=== PATIENT | male | born 1955 | race Caucasian/White ===

== ENCOUNTER → 2017-06-18 | Outpatient (CLI) | payer OTHER ==
[~2017-06-18] VITALS: Ht 172.7 cm; Wt 93.0 kg
[~2017-06-18] MED LIST: ALEVE220 MG; COUMADIN 5 MG TA5 M1; FISH OIL 1,001000 M2 PO; FISHOIL; HYDROCODON-ACE1 EAC8; LEVAQUIN 500 M500 M3 PO; LISINOPRIL10 MG PO; LORTAB 7.5/5001 TA3 PO; MULTIVITAMINS; MULTIVITAMINS1 EAC7 PO; PERCOCET 5-3251 EACH PO; PHENERGAN 25 MG25 M1 PO; ZANTAC; ZANTAC 150MG T150 M1 PO; ZANTAC 150MG T150 MG PO; flomax PO
--- NOTE | ~2017-06-18 | S ---
[facility] [place] [address] SURGICAL PATH RPT PROCEDURE Name: CHIQUISIRVING JOSE Room #: REG CAMILO BradyMichaelRaduMichael#: [id number] Admission: 06/18/17 Date of : 53 Discharge: Report #: [id number] Path Case #: [id number] PATHOLOGY REPORT COLLECTION DATE: 06/18/2017 RECEIVED DATE: 06/18/2017 SUBMITTING PHYS: Dr. Faustino Juarez OTHER PHYS: Dr. Karl Jones SPECIMEN(S) RECEIVED: A.Esophagus B.Gastric C.Polypechtomy at 70cm D.Cecal polyp E.Polyp ascending colon F.Polypectomy at hepatic flexure * * * * * * * * * * * * FINAL DIAGNOSIS: A. Esophagus, biopsy: - Squamocolumnar junctional mucosa with minimal/focal intestinal metaplasia (García's esophagus), negative for dysplasia. B. Stomach, biopsy: - Mild chronic inactive gastritis. - An H. pylori immunostain is negative (Block B1; appropriately reactive control). C. Colon, 70 cm, polypectomy: - Tubular adenoma, fragmented. - Negative for high-grade dysplasia. D. Colon, cecum, biopsy: - Tubular adenoma. - Negative for high-grade dysplasia. E. Colon, ascending, biopsy: - Tubular adenoma. - Negative for high-grade dysplasia. F. Colon, hepatic flexure, polypectomy: - Tubular adenoma. - Negative for high-grade dysplasia. PATHOLOGIST: Alvin. Prochaska, M.D. REPORT ELECTRONICALLY SIGNED BY: Moises Stinson M.D. DATE/TIME: 06/21/2017 11:05 * * * * * * * * * * * * GROSS PATHOLOGY: A. Received in formalin labeled "PAT Holden of esophagus [facility] [address] [place] [address] SURGICAL PATH RPT PROCEDURE Name: IRVING SIM JOSE Room #: REG CAMILO Michael#: [id number] Admission: 06/18/17 Date of : 53 Discharge: Report #: [id number] Path Case #: [id number] r/o García's," are 3 segments of alberto soft tissue measuring 1.0 x 0.2 x 0.3 cm in aggregate dimensions and ranging from 0.1 to 0.4 cm in maximum dimension. The specimen is submitted entirely in cassette A1. B. Received in formalin labeled "PAT Holden of gastric r/o gastritis," are 5 segments of alberto soft tissue measuring 1.5 x 0.2 x 0.3 cm in aggregate dimensions and ranging from 0.2 to 0.3 cm in maximum dimension. The specimen is submitted entirely in cassette B1. C. Received in formalin labeled "Irving Sim, polyp at 70 cm," are 5 segments of alberto soft tissue measuring 1.5 x 2.1 x 0.5 cm in aggregate dimensions and ranging from 0.4 to 0.6 cm in maximum dimension. The specimen is submitted entirely in cassette C1. D. Received in formalin labeled "Irving Sim, BX of cecal polyp," is a segment of alberto soft tissue measuring 0.3 cm in maximum dimension. The specimen is submitted entirely in cassette D1. E. Received in formalin labeled "Irving Sim, polyp at ascending colon," are 2 segments of alberto soft tissue measuring 0.9 x 0.3 x 0.2 cm in aggregate dimensions and ranging from 0.3 to 0.5 cm in maximum dimension. The specimen is submitted entirely in cassette E1. F. Received in formalin labeled "Irving Sim, polypectomy at hepatic flexure," are 2 segments of alberto soft tissue measuring 0.9 x 0.5 x 0.3 cm in aggregate dimensions and ranging from 0.4 to 0.5 cm in maximum dimension. The specimen is submitted entirely in cassette F1. (TSD; 06/18/2017) CLINICAL HISTORY: Pre-OP DX: GERD Post-OP DX: Gastritis, diverticulosis, colon polyps, hemorrhoids INITIAL CPT CODE(S): A; 63471 B; 38248, 67991 C; 76537 D; 63068 E; 95154 F; 97745 Professional services performed by [facility] [address], [place] [address] Technical services performed by [facility] at [address] [place] [address], [address] [address]. [facility] [address] [address] SURGICAL PATH RPT PROCEDURE Name: IRVING SIM JOSE Room #: REG CAMILO Rodriguez#: [id number] Admission: 06/18/17 Date of : 53 Discharge: Report #: [id number] Path Case #: [id number] [address] PHONE: [phone] DIRECTOR: Daniel Bloom M.D. * * * END OF REPORT * * *
--- NOTE | ~2017-06-18 | P ---
[facility] [place] [address] PROCEDURE REPORT Name: IAN SIM JOSE Room #: REG RAJESHMadelyn Rodriguez#: [id number] Admission: 06/18/17 Attend Phys: Faustino Juarez MD Discharge: Date of : 53 Report #: [id number] THIS REPORT FOR: //name// CC: Karl Quintana MD BRIEF HISTORY: The patient is a 62-year-old male for his initial screening colonoscopy. He is asymptomatic. PREOPERATIVE DIAGNOSIS: First screening colonoscopy. POSTOPERATIVE DIAGNOSES: 1. Multiple colon polyps. 2. Moderate sigmoid diverticulosis coli. 3. Small internal hemorrhoids. MEDICATIONS: Deep sedation with propofol per anesthesia. SPECIMENS: 1. Polyp at 70 cm. 2. Cecal polyp. 3. Ascending colon polyp. 4. Polyp, hepatic flexure. ESTIMATED BLOOD LOSS: 3 mL. PROCEDURE: Colonoscopy to cecum and terminal ileum with snare polypectomy and biopsy. FINDINGS: Prior to propofol sedation, procedure of colonoscopy discussed with the patient as well as potential risks, benefits, and complications. He indicates he understands and desires to proceed. With the patient in left lateral decubitus position, digital examination was completed, which revealed no abnormalities. Subsequently, the [employer] video colonoscope was introduced into the rectum and advanced under direct vision to the cecum. Done with minimal difficulty. The cecum was identified by the ileocecal valve and the appendiceal orifice. I was able to visualize the distal segment of the terminal ileum, which was inspected and noted to be unremarkable. At that point, the scope was slowly withdrawn and careful circumferential views obtained including retroflexing the scope in the ascending colon. Upon slow withdrawal of the scope, the prep was noted to be excellent. The mucosa was within normal limits, normal vascular pattern, normal light reflex. As we withdrew the scope, a diminutive polyp was seen in the cecum and removed by biopsy. The scope was further withdrawn in the proximal ascending colon, another diminutive polyp seen and removed by biopsy. Scope was further [facility] [address] [place] [address] PROCEDURE REPORT Name: IAN SIM Room #: REG [facility].#: [id number] Admission: 06/18/17 Attend Phys: Faustino Juarez MD Discharge: Date of : 53 Report #: [id number] and in the hepatic flexure, a 5-6 mm sessile polyp was seen and removed by cold snare polypectomy and recovered. As we withdrew the scope, an 8 mm pedunculated polyp on a narrow stalk was seen at 70 cm and removed by cold snare polypectomy and recovered. As we withdrew the scope through the remainder of the colon, it was essentially within normal limits with normal vascular pattern and normal light reflex. However, as we withdrew the scope into the sigmoid colon, he was noted to have moderately severe diverticular disease without endoscopic evidence of diverticulitis. The scope was withdrawn in the rectum. Upon retroflexion, small internal hemorrhoids were seen. Scope was withdrawn. The patient tolerated the procedure well. CONDITION OF THE PATIENT UPON DISCHARGE: Following procedure, the patient drowsy, aroused, conversant and will be discharged home when fully ambulatory. INSTRUCTIONS TO THE PATIENT AND FAMILY AT THE TIME OF DISCHARGE: We will follow up on the path report and make further recommendations. If more than 3 polyps are adenomas, he should return in 3 years; if only one or two, then 5 years; if by chance none are adenomas, then 10 years would be indicated. He will return to the care of Dr. Shane Quintana, return to see me as needed. This is the patient's first colonoscopy. Withdrawal time from the cecum was 9 minutes 28 seconds. By: 0830 [id number] Faustino Juarez MD /curtis
--- NOTE | ~2017-06-18 | P ---
[facility] [place] [address] PROCEDURE REPORT Name: IAN SIM JOSE Room #: REG CAMILO Rodriguez#: [id number] Admission: 06/18/17 Attend Phys: Faustino Juarez MD Discharge: Date of : 53 Report #: [id number] THIS REPORT FOR: //name// CC: Karl Quintana MD BRIEF HISTORY: The patient is a 62-year-old male with longstanding history of reflux symptoms. He takes Zantac nearly daily basis. He has some control, but not complete control of reflux symptoms, atypically it occur at night. He denies dysphagia. PREOPERATIVE DIAGNOSIS: Longstanding reflux, poorly controlled. POSTOPERATIVE DIAGNOSES: 1. Grade D erosive esophagitis. 2. A 2-4 cm sliding type hiatus hernia. 3. Erythematous gastritis. 4. Patchy bulbar duodenitis. 5. Retained solids and liquids in the stomach, suggestive of gastroparesis. MEDICATIONS: Deep sedation with propofol per anesthesia. SPECIMENS: 1. Biopsies of gastritis. 2. Biopsies of distal esophagus. ESTIMATED BLOOD LOSS: 3 mL. PROCEDURE: EGD with biopsy. FINDINGS: Prior to propofol sedation, procedure of upper endoscopy discussed with the patient as well potential risks, benefits, and complications. He indicates he understands and desires to proceed. With the patient in left lateral decubitus position, the [employer] video endoscope was inserted in the cervical esophagus under direct vision without difficulty. Examination of this organ through its entire length revealed normal esophageal mucosa in the proximal esophagus. However, the was advanced in the distal esophagus, he was noted to have evidence of esophagitis involving about the distal 3 cm esophagus. There was full circumferential involving the esophagitis, superficial ulceration was seen. No deep ulcer was seen. There was no evidence of strictures or masses. The scope was advanced and he was noted to have about a 2-4 cm sliding type hiatus hernia. The mucosa and hernia was normal. The scope was then advanced then in the stomach and immediately, we encountered a large pool of liquidy material with particulate matter. We suctioned as much liquid as possible and this left a moderate size pool of [facility] [address] [place] [address] PROCEDURE REPORT Name: IAN SIM JOSE Room #: REG [facility].#: [id number] Admission: 06/18/17 Attend Phys: Faustino Juarez MD Discharge: Date of : 53 Report #: [id number] amorphous solid material. Findings are suggestive of gastroparesis. We removed as much as possible. However, some solid material remained in the stomach, but the fluid volume was markedly decreased. We suctioned probably 300 mL of liquid out of his stomach. The stomach was then examined on end view as well as retroflexed views. There was a diffuse erythema, but no ulcers or erosions were seen. Upon retroflexion, the hiatus hernia was seen. No mass lesions were seen. The pylorus was unremarkable. Examination of the duodenal bulb revealed patchy erythema. No ulcers were seen, the second and third portion of duodenum were unremarkable. At that point, the scope was slowly withdrawn and careful circumferential views confirmed the above findings. We removed as much as air as possible. Biopsies obtained of the gastritis and we also obtained biopsies of distal esophagus to evaluate for the possibility of a García. Scope was withdrawn. The patient tolerated the procedure well. CONDITION OF THE PATIENT UPON DISCHARGE: Following procedure, the patient drowsy and prepared for colonoscopy. INSTRUCTIONS TO THE PATIENT AND FAMILY AT THE TIME OF DISCHARGE: He has significant esophagitis. We will place him on pantoprazole 40 mg daily. He may use Zantac as needed for breakthrough symptoms. We will follow up on biopsies. However, due to grade D esophagitis, we will have him return in 12 weeks for repeat EGD to further evaluate for lesions including a García esophagus. Also, obtain a gastric emptying study to evaluate for possibility of gastroparesis. We will proceed with colonoscopy at this time. By: 0803 20 Faustino Juarez MD /curtis
== END | disposition home or self-care (01) ==
LOC: GI 06:33
DX: Z12.11 Encounter for screening for malignant neoplasm of colon (principal); K57.30 Diverticulosis of large intestine without perforation or abscess without bleeding; K64.8 Other hemorrhoids; D12.0 Benign neoplasm of cecum; D12.3 Benign neoplasm of transverse colon; D12.4 Benign neoplasm of descending colon; K21.9 Gastro-esophageal reflux disease without esophagitis; K22.10 Ulcer of esophagus without bleeding; K44.9 Diaphragmatic hernia without obstruction or gangrene; K29.60 Other gastritis without bleeding; K29.80 Duodenitis without bleeding
CPT/HCPCS: 62110; 62900

== ENCOUNTER → 2020-04-22 | Outpatient (CLI) | payer OTHER ==
[~2020-04-22] MED LIST changes: +BISACODYL10 MG RECTAL; +CHILDREN'S ASPI81 M1 PO; +FAMOTIDINE 10 M10 MG PO; +LISINOPRIL20 MG PO; +MELOXICAM15 MG PO; +NORCO 10-325 T1 EACH PO; +PROTONIX40 M1 PO; +XARELTO10 MG PO
== END ==
LOC: LAB 07:47
PROVIDERS: ATTEND Student in an Organized Health Care Education/Training Program
DX: Z01.812 Encounter for preprocedural laboratory examination (principal); Z20.828 Contact with and (suspected) exposure to other viral communicable diseases

== ENCOUNTER 2020-04-25 08:01 | Inpatient (IN) | payer OTHER ==
[2020-04-16 11:16] LABS: HEMATOCRIT 45.9 % (42.0-52.0); HEMOGLOBIN 15.7 gm/dL (14.0-18.0); MCH 30.7 pg (26.0-34.0); MCHC 34.3 g/dL (28.0-37.0); MCV 89.5 fL (80.0-100.0); RBC 5.13 mil/uL (4.50-6.00); RDW 14.2 % (10.5-14.5); WBC 7.7 thou/uL (4.0-11.0)
[2020-04-16 11:20] LABS: URINE BILIRUBIN NEGATIVE (Negative); URINE BLOOD NEGATIVE (Negative); URINE CLARITY CLEAR; URINE COLOR YELLOW; URINE GLUCOSE-RANDOM* NEGATIVE (Negative); URINE KETONES NEGATIVE (Negative); URINE LEUKOCYTES-REFLEX NEGATIVE (Negative); URINE NITRITE-REFLEX NEGATIVE (Negative); URINE PROTEIN (DIPSTICK) NEGATIVE (Negative); URINE SPECIFIC GRAVITY 1.025 (1.005-1.035); URINE UROBILINOGEN 0.2 E.U./dl (0.2-1.0)
[2020-04-16 11:28] LABS: PROTIME 9.9 Seconds (9.3-11.4)
[2020-04-16 11:30] LABS: ALBUMIN 4.1 g/dL (3.4-5.0); CALCIUM 10.5 mg/dL (8.5-10.1); CREATININE 1.2 mg/dL (0.7-1.3); POTASSIUM 4.1 mmol/L (3.5-5.1)
[~2020-04-25] VITALS: Ht 170.2 cm; Wt 87.5 kg
[~2020-04-25 08:01] MED LIST changes: -BISACODYL10 MG RECTAL; -CHILDREN'S ASPI81 M1 PO; -NORCO 10-325 T1 EACH PO; -XARELTO10 MG PO
[2020-04-25 09:43] VITALS: BP 141/70
[2020-04-25 14:51] VITALS: BP 132/67
--- NOTE | 2020-04-25 15:53 | NUR ---
PATIENT ADMITTED FROM OR, WITH RIGHT HIP REPLACEMENT, RAMESH DRESSING, THIGH HIGH ANAYA HOSE, SCD'S, ICE PACK. PATIENT C/O PAIN WITH RIGHT HIP AREA, 7/10. OXYCODONE 1 TABLET GIVEN, AND C/O NAUSEA, ZOFRAN 4 MG IV GIVEN. PATIENT ATTEMPTED TO WORK WITH PHYSICAL THERAPY/BRAULIO, BUT GOT LIGHTHEAED. PATIENT WANTS DIET UPGRADED TO REGULAR FOR DINNER. PATIENT HAS RIGHT HAND IV WITH 0.45NS AT 100CC/HR STARTED. ADMISSION DONE AND REPORT GIVEN TO DENISE/RN.
--- NOTE | 2020-04-25 16:05 | O ---
[facility] [place] [address] OPERATIVE REPORT Name: IAN SIM JOSE Room #: 443-P ADM IN M.R.#: [id number] Admission: 04/25/20 Attend Phys: Herberth Beasley MD Discharge: Date of : 53 Report #: [id number] THIS REPORT FOR: cc: Shane Quintana MD,Herberth Conner MD, MD ~ CC: Herberth Quintana DATE OF SERVICE: 04/25/2020 PREOPERATIVE DIAGNOSIS: End-stage degenerative arthritis, right hip. POSTOPERATIVE DIAGNOSIS: End-stage degenerative arthritis, right hip. PROCEDURE: Right total hip arthroplasty. SURGEON: Herberth Beasley MD INDICATIONS: This slender, healthy and active 65-year-old gentleman has progressive degenerative arthritis in multiple areas. He already has a left total hip and is functioning well. On the right side, his hip is degenerative and painful and limits his ability to remain active and functional. He has tried conservative measures including activity moderation and physical therapy without benefit. He has decided to go ahead with right total hip replacement. DESCRIPTION OF PROCEDURE: The patient was taken to the operating room where he was placed under general anesthesia. Prophylactic intravenous antibiotics were administered. He was turned to the left lateral decubitus position. The right hip, thigh and leg were meticulously prepped and draped. A slightly curving posterolateral skin incision was made centered over the greater trochanter. This was carried through fascia and gluteus to expose the posterior aspect of the hip joint. The short external rotators and capsule were taken down and preserved and tagged with several #1 FiberWire sutures. The hip was dislocated posteriorly and moderately severe degenerative change on both the femoral head and acetabulum was noted. A femoral neck osteotomy was performed. The Short and Nephew hip system was utilized. Intramedullary reamers and hand broaches were used on the femur and the femur seemed to best suited for a size 14 femoral stem. The trial stem was removed and the calcar trimmed down to an appropriate level. Attention was directed to the acetabulum. Good exposure was established and the acetabulum was sequentially reamed, gradually advancing to a 54 mm reamer. A 54 mm StikTite 3-hole Short and Nephew shell was then inserted. This was placed in alignment with his true acetabulum, which positioned this in about 45 degrees off of vertical and about 20 degrees of anteversion. It was impacted into position and seated nicely and appeared to be secure. In addition, 3 screws were placed through the apical holes engaging good periacetabular bone [address] [address] OPERATIVE REPORT Name: IAN SIM Room #: 443-P [facility] [place] .R.#: [id number] Admission: 04/25/20 Attend Phys: Herberth Beasley MD Discharge: Date of : 53 Report #: [id number] with good purchase and additional stability. The 36 mm diameter polyethylene insert was then snapped into place positioning the 20-degree elevated rim at about the 10 o'clock posterior position. It seated nicely and appeared to be secure. The permanent Short and Nephew size 14 Synergy high offset press-fit stem was then inserted, positioning this in about 20 degrees of anteversion. It was impacted in place and seated nicely and appeared to be secure. A trial reduction was performed and a +0 neck length fit nicely, resulting in good alignment, range of motion, stability and leg length. The trial head was removed and a permanent Oxinium 36 mm head with a +0 neck length was then selected and impacted on the Marmolejo taper. It seated nicely and appeared to be secure. The short external rotators and capsule were then repaired back to bone using #1 FiberWire sutures passed through drill holes in the greater trochanter. A single Hemovac was left in the wound exiting through a separate stab incision. The fascia was closed with multiple #1 Vicryl sutures. The adipose and subcutaneous tissues were closed with 0 Monocryl. The skin was closed with skin leonard. A sterile dressing was applied. The patient was awakened and returned to recovery room in good condition. <ELECTRONICALLY SIGNED> By: Herberth Beasley MD 04/25/20 1605 1156 1334 Herberth Beasley MD /nt
[2020-04-25 16:21] VITALS: BP 133/61
--- NOTE | 2020-04-25 16:51 | NUR ---
Assumed care of pt. at 1600 and took report Joselin frost RN. Pt. is calm and has no complaints of pain or N/V at this time. Fall precautions in place.
[2020-04-25 17:10] VITALS: BP 123/64
[2020-04-25 20:30] VITALS: BP 129/57
--- NOTE | 2020-04-26 04:00 | NUR ---
PT SLEPT THE WHOLE NOC W/O ASKING FOR PAIN MEDS. HE IS ALERT AND ORIENTED X 4. BEEN USING URINAL. HE DID NOT WANT TO GET UP BECAUSE EARLIER IN THE DAY HE WAS VERY DIZZY AND NAUSEATED WHEN HE GOT UP WITH PT.AFEBRILE. EATING AND DRINKING OKAY. VOIDING OKAY PER URINAL. NO FURTHER CONCERNS.
[2020-04-26 04:52] VITALS: BP 109/65
[2020-04-26 06:48] LABS: HEMATOCRIT 37.3 % (42.0-52.0); HEMOGLOBIN 12.5 gm/dL (14.0-18.0); MCH 30.3 pg (26.0-34.0); MCHC 33.5 g/dL (28.0-37.0); MCV 90.7 fL (80.0-100.0); RBC 4.11 mil/uL (4.50-6.00); RDW 13.8 % (10.5-14.5); WBC 12.7 thou/uL (4.0-11.0)
[2020-04-26 07:21] VITALS: BP 109/64
--- NOTE | 2020-04-26 08:47 | NUR ---
ASSESSMENT: CM REVIEWED CHART AND SPOKE WITH PATIENT. PT IS HERE DUE TO RIGHT TKR. PT REPORTS THAT HE LIVES IN A HOUSE WITH HIS . PT REPORTS TWO STEPS WITH NO HANDRAIL TO ENTER. PT REPORTS HIS BEDROOM IS ON THE MAIN LEVEL BUT THEY DO HAVE THEIR LAUNDRY IN THE BASEMENT. PT REPORTS ABOUT 12 STEPS WITH HANDRAILS TO THE BASEMENT. PT REPORTS HE NORMALL TRIES TO AMBULATE INDEPENDENTLY BUT DOES HAVE A CANE AT HOME AND WALKER FROM PAST SURGERY. PT REPORTS HAVING HH IN THE PAST BUT UNSURE THE AGENCY. PT/OT TO SEE PATIENT. PT IS OPEN TO HH IF NEEDED AND HAS NO PREFERENCE OF AGENCY. CM WILL CONTINUE TO FOLLOW TO ASSIST NEEDED.
--- NOTE | 2020-04-26 11:59 | NUR ---
Assumed care of pt at 0700. Pt a&px4. Surgical dressing c/d/i. Hemovac drain removed. Pain controlled with prn pain meds. Pt worked with physical therapy and tolerated well. Call light within reach. Pt calls appropriately. SBA with walker and gait-belt. Will continue to monitor.
--- NOTE | 2020-04-26 13:11 | NUR ---
ON-GOING ASSESSMENT: CM REVIEWED CHART AFTER PT ME WITH PT/OT. OT STATING PATIENT MAY BENEFIT FROM HH. CM DISCUSSED WITH PT AND HE IS UNSURE IF HE NEEDS HH OR NOT. PT IS AGREEABLE FOR HH HE STATES IF THE PHYSICIAN FEELS HE NEEDS IT. PT REPORTS HE HAS NO PREFERENCE OF HH COMPANY. CM FAXED REFERRAL TO [facility] WHO IS IN NETWORK WITH PATIENTS INSURANCE. IF PATIENT IS ABLE TO DISCHARGE OVER THE WEEKEND AND NEEDS HH PLEASE CONTACT [facility]:[phone] AND FAX D/C ORDERS AND SUMMARY TO FAX:[phone]. PATIENT ALREADY HAS A WALKER AND CANE AT HOME.
[2020-04-26 15:48] VITALS: BP 132/69
[2020-04-26 19:29] VITALS: BP 121/63
--- NOTE | 2020-04-27 04:00 | NUR ---
RAMESH ONEILL TO R HIP. THTH IN PLACE. USES URINAL.AFEBRILE. DENIES ANY GI OR DISCOMFORT.VOIDING OKAY. DENIES CONCERNS.
[2020-04-27 06:07] LABS: HEMATOCRIT 37.1 % (42.0-52.0); HEMOGLOBIN 12.7 gm/dL (14.0-18.0); MCH 30.6 pg (26.0-34.0); MCHC 34.1 g/dL (28.0-37.0); MCV 89.7 fL (80.0-100.0); RBC 4.14 mil/uL (4.50-6.00); RDW 13.5 % (10.5-14.5); WBC 13.8 thou/uL (4.0-11.0)
[2020-04-27 06:32] LABS: ALBUMIN 3.1 g/dL (3.4-5.0); CALCIUM 9.7 mg/dL (8.5-10.1); CREATININE 1.1 mg/dL (0.7-1.3); POTASSIUM 4.5 mmol/L (3.5-5.1); TOTAL BILIRUBIN 0.7 mg/dL (0.2-1.0); TOTAL PROTEIN 6.3 g/dL (6.4-8.2)
[2020-04-27 06:35] VITALS: BP 121/65
[2020-04-27 07:45] VITALS: BP 131/71
[2020-04-27] MEDS ORDERED: XARELTO10 MG PO (11:03)
[2020-04-27] MEDS ORDERED: NORCO 10-325 T1 EACH PO (11:05)
[2020-04-27 11:19] VITALS: BP 131/71
--- NOTE | 2020-04-27 11:31 | D ---
[facility] [place] [address] DISCHARGE SUMMARY Name: IAN SIM JOSE Room #: 443-P ADM IN M.R.#: [id number] Admission: 04/25/20 Attend Phys: Herberth Beasley MD Discharge: Date of : 53 Report #: [id number] THIS REPORT FOR: cc: Shane Quintana MD, Stephen L. MD Clymer, David J. MD ~ THIS REPORT FOR: //name// CC: Herberth Quintana DATE OF SERVICE: 04/27/2020 FINAL DIAGNOSIS: End-stage degenerative arthritis, right hip. OPERATION PROCEDURES: Right total hip arthroplasty. HISTORY OF PRESENT ILLNESS: This slender, fit and active 65-year-old gentleman has progressive degenerative arthritis in multiple joints. He already has a left total hip and now has progressive right hip pain with clinical and radiographic findings consistent with severe degenerative change. He has decided to go ahead with right total hip arthroplasty. HOSPITAL COURSE: The patient was admitted and taken to the operating room on April 25. He underwent right total hip arthroplasty, which he tolerated well. Postoperatively, his course has been largely unremarkable. He has gradually advance activity and is now functional and safe and independent, ambulating with a walker for balance. He has resumed a regular diet. He has advanced from IV analgesics to oral analgesics and is back on his routine regular medications. He has been started on Xarelto for anticoagulation prophylaxis. He states he is comfortable and safe and anxious for discharge today. DISCHARGE MEDICATIONS: Include Xarelto 10 mg daily, hydrocodone 10/325 one q.6 hours as needed for pain, multivitamin 1 daily, fish oil 1000 mg twice daily, lisinopril 20 mg daily, famotidine 10 mg daily. He will continue with independent exercise at home and will call if he feels the need for assistance at home or for outpatient therapy. I will plan to see him back in my office in 1 week for followup and in 2 weeks for suture removal. <ELECTRONICALLY SIGNED> By: Herberth Beasley MD 04/27/20 1131 [id number] 1118 Herberth Beasley MD /nt
--- NOTE | 2020-04-27 15:22 | NUR ---
Assumed care of pt at 0700. Jax dressing c/d/i. Pain controlled with prn pain meds. SBA with walker and gait-belt. No home health needed per doctor and patient statement. Family at bedside. Pt discharge home with script.
== END 2020-04-27 12:31 | disposition home health service (06) | DRG 470 ==
LOC: OR 08:01 → TBA 08:05 → PRE 10:44 → EDSTATUS 12:49 → OR 12:51 → 4S 14:05 → OR 14:05 → PRE 14:13 → 4S 04-27 12:31
PROVIDERS: Hospitalist; ADMIT Orthopaedic Surgery; ATTEND Orthopaedic Surgery
PROC: 0SR906Z Replacement of Right Hip Joint with Oxidized Zirconium on Polyethylene Synthetic Substitute, Open Approach (ICD-10-PCS; principal; 2020-04-25)
DX: M16.11 Unilateral primary osteoarthritis, right hip (principal); K21.9 Gastro-esophageal reflux disease without esophagitis; I10 Essential (primary) hypertension; Z96.642 Presence of left artificial hip joint; Z90.49 Acquired absence of other specified parts of digestive tract
CPT/HCPCS: 10102; 50010; 50101; 50382; 50414; 51412; 53000; 53368; 56521; 56525; 56530; 57095; 70005

== ENCOUNTER 2020-05-30 08:25 | Emergency (ER) | payer OTHER ==
[~2020-05-30] VITALS: Ht 170.2 cm; Wt 86.2 kg
[~2020-05-30 08:25] MED LIST changes: +NORCO 10-325 T1 EACH PO; +XARELTO10 MG PO
[2020-05-30] MEDS ORDERED: CHILDREN'S ASPI81 M1 PO (08:29)
[2020-05-30 09:00] LABS: BASOPHILS 0.4 % (0.0-2.0); EOSINOPHILS 0.2 % (0.0-3.0); HEMATOCRIT 43.2 % (42.0-52.0); HEMOGLOBIN 14.8 gm/dL (14.0-18.0); MCH 30.1 pg (26.0-34.0); MCHC 34.2 g/dL (28.0-37.0); MONOCYTES 4.4 % (1.0-8.0); PLATELET COUNT 270 thou/uL (150-400); RBC 4.91 mil/uL (4.50-6.00); RDW 14.3 % (10.5-14.5); WBC 16.1 thou/uL (4.0-11.0)
[2020-05-30 09:13] LABS: URINE BILIRUBIN NEGATIVE (Negative); URINE BLOOD NEGATIVE (Negative); URINE CLARITY CLEAR; URINE COLOR YELLOW; URINE GLUCOSE-RANDOM* NEGATIVE (Negative); URINE KETONES TRACE (Negative); URINE LEUKOCYTES-REFLEX NEGATIVE (Negative); URINE NITRITE-REFLEX NEGATIVE (Negative); URINE PROTEIN (DIPSTICK) TRACE (Negative); URINE SPECIFIC GRAVITY >= 1.030 (1.005-1.035); URINE UROBILINOGEN 0.2 E.U./dl (0.2-1.0)
[2020-05-30 09:19] LABS: CALCIUM 11.7 mg/dL (8.5-10.1); CREATININE 1.3 mg/dL (0.7-1.3); POTASSIUM 4.2 mmol/L (3.5-5.1)
[2020-05-30 09:25] LABS: ALBUMIN 4.2 g/dL (3.4-5.0); TOTAL BILIRUBIN 0.7 mg/dL (0.2-1.0)
[2020-05-30] MEDS ORDERED: BISACODYL10 MG RECTAL (09:54)
[2020-05-30 10:00] VITALS: BP 137/81
== END 2020-05-30 10:00 | disposition home or self-care (01) ==
LOC: ER 08:25
PROVIDERS: Emergency Medicine
DX: K59.00 Constipation, unspecified (principal); K21.9 Gastro-esophageal reflux disease without esophagitis; I10 Essential (primary) hypertension; Z96.642 Presence of left artificial hip joint; Z87.442 Personal history of urinary calculi; Z90.49 Acquired absence of other specified parts of digestive tract; Z96.641 Presence of right artificial hip joint; Z79.899 Other long term (current) drug therapy; Z79.82 Long term (current) use of aspirin; Z88.8 Allergy status to other drugs, medicaments and biological substances